=== PATIENT | male | born 1940 | race Caucasian/White ===

== ENCOUNTER 2024-06-29 13:43 | Inpatient (IN) | payer MEDICARE, MEDICAID, SELFPAY ==
[2024-06-29] VITALS (21 sets, daily range): BP systolic 106–140; BP diastolic 57–72; PULSE 76–98; RESP 13–23; TEMP 36.7–37.1; O2SAT 90–100; BMI 23.6
--- NOTE | 2024-06-29 14:13 | XRR_ITS ---
PROCEDURE INFORMATION: Exam: XR Chest Exam date and time: 06/29/2024 2:33 PM Age: 83 years old Clinical indication: Epigastric pain; Vomiting TECHNIQUE: Imaging protocol: Radiologic exam of the chest. Views: 1 view. COMPARISON: No relevant prior studies available. FINDINGS: Tubes, catheters and devices: A screw is seen overlying the right glenoid. No acute findings. Lungs: There is a left medial basilar/retrocardiac focal opacity which could represent a small area of infiltrate or atelectasis. Lung bedoya are otherwise clear. Pleural spaces: Unremarkable. No pleural effusion. No pneumothorax. Heart/Mediastinum: Unremarkable. No cardiomegaly. Bones/joints: Unremarkable. XR/XR chest 1V portable [id number] IMPRESSION: There is a left medial basilar/retrocardiac focal opacity which could represent a small area of infiltrate or atelectasis. Please correlate clinically.
--- NOTE | 2024-06-29 14:14 | PC.PHAR ---
patient is from [facility]
[2024-06-29 14:22] LABS: Basophils # 0.1 10^3/uL (0.0-0.1); Basophils % 0.9 %; Eosinophils # 0.1 10^3/uL (0.0-0.8); Eosinophils % 0.9 %; Lymphocytes # 0.9 10^3/uL (0.8-4.8); Lymphocytes % 11.8 %; Mean Corpuscular HGB Conc 28.6 g/dL (30-55); Mean Corpuscular Hemoglobin 20.1 pg (27-33); Mean Corpuscular Volume 70.1 fl (82-101); Mean Platelet Volume 9.6 fL (7.4-10.4); Monocytes # 1.1 10^3/uL (0.2-0.9); Monocytes % 13.9 %; Neutrophils % 71.7 %; Nucleated Red Blood Cells % 0 %; Platelet Count 373 10^3/cmm (157-399); Red Blood Count 3.14 10^6/uL (3.85-5.65); Red Cell Distribution Width 19.7 % (12.1-15.1); White Blood Count 7.94 10^3/uL (3.29-11.43)
[2024-06-29] MEDS: ondansetron 2 mg/ML SDV 2 mL 4 MG IVP (14:26)
[2024-06-29] MEDS: pantoprazole 40 mg SDV IVP ×2 (14:26→20:29)
[2024-06-29 14:33] LABS: INR 1.04 (0.8-1.2)
[2024-06-29 14:34] LABS: Partial Thromboplastin Time 31.8 SECONDS (23.9-36.7)
[2024-06-29 14:42] LABS: Alanine Aminotransferase 12 U/L (0-41); Albumin Level 3.8 g/dL (3.5-5.2); Alkaline Phosphatase 84 U/L (40-130); Anion Gap 15.4 (5-19); Aspartate Amino Transferase 15 U/L (0-40); Blood Urea Nitrogen 36 mg/dL (8-23); Calcium 8.6 mg/dL (8.5-10.5); Carbon Dioxide 20 mmol/L (22-29); Chloride 105 mmol/L (98-107); Creatinine Clr Calc Pharmacy 56.5646; Globulin 2.5 g/dL (1.3-4.6); Glucose 104 mg/dL (65-115); Osmolality Calculated 291 mOsm/kg (285-295); Potassium 4.4 mmol/L (3.5-5.1); Sodium 136 mmol/L (136-145); Total Bilirubin 0.2 mg/dL (0.15-1.2); Total Protein 6.3 g/dL (6.6-8.7)
--- NOTE | 2024-06-29 15:01 | W.ED.GIBLEED ---
HPI - GI Bleed General: Chief complaint: GI Bleed Stated complaint: gi bleed Time Seen by Provider: 06/29/24 13:48 Source: patient and EMS Mode of arrival: EMS Limitations: other (Dementia) History of Present Illness: Patient is from custodial states that he had dark-colored vomit last night and this morning per custodial. They felt like it was coffee-ground emesis. Possibly some diarrhea as well. 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 Denies any abdominal pain. No previous records available in chart. Related Data Home Medications ?Medication ?Instructions ?Recorded ?Confirmed acetaminophen 325 mg tablet 650 mg PO Q4H 06/29/24 06/29/24 alprazolam 0.25 mg tablet 0.25 mg PO QID 06/29/24 06/29/24 aluminum-mag hydroxide-simethicone 30 ml PO Q2H PRN Constipation 06/29/24 06/29/24 200 mg-200 mg-20 mg/5 mL oral susp bisacodyl 5 mg tablet 5 mg PO Q6H PRN Constipation 06/29/24 06/29/24 escitalopram oxalate 10 mg tablet 10 mg PO DAILY 06/29/24 06/29/24 famotidine 20 mg tablet 20 mg PO BID 06/29/24 06/29/24 finasteride 5 mg tablet 5 mg PO DAILY 06/29/24 06/29/24 folic acid 1 mg tablet 1 mg PO DAILY 06/29/24 06/29/24 magnesium hydroxide 400 mg/5 mL 30 ml PO DAILY PRN Constipation 06/29/24 06/29/24 oral suspension (Milk of Magnesia) ondansetron HCl 4 mg tablet 4 mg PO Q6H 06/29/24 06/29/24 oxycodone 5 mg tablet 5 mg PO QID 06/29/24 06/29/24 pantoprazole 40 mg tablet,delayed 40 mg PO DAILY 06/29/24 06/29/24 release permethrin 5 % topical cream 1 applic topical DAILY 06/29/24 06/29/24 polyethylene glycol 3350 17 17 g PO DAILY 06/29/24 06/29/24 gram/dose oral powder quetiapine 25 mg tablet 25 mg PO TID 06/29/24 06/29/24 tamsulosin 0.4 mg capsule 0.4 mg PO DAILY 06/29/24 06/29/24 tramadol 50 mg tablet 100 mg PO Q6H PRN Pain 06/29/24 06/29/24 trazodone 50 mg tablet 50 mg PO DAILY 06/29/24 06/29/24 vit C 50 mg-E 15 unit-zinc cit 4.5 1 tab PO DAILY 06/29/24 06/29/24 mg-lutein 2.5 mg-zeaxan chew tablet ([employer]) Review of Systems General: Reports: Other (Unable due to dementia) PFSH ED PFSH: Medical History Alzheimer's dementia Physical Exam Const: COMMON NORMALS: no acute distress, average body habitus, healthy appearing, alert and well nourished GENERAL APPEARANCE: well kempt and well developed ORIENTATION/CONSCIOUSNESS: Yes awake, Yes oriented to person, Yes oriented to place (Can pick out the type of place.) and Yes oriented to time (Unsure date month or year, unable to remember what he ate for breakfast) HENMT: COMMON NORMALS: normocephalic, atraumatic, external ears normal and moist oral mucous membranes HEAD & SCALP: normocephalic and atraumatic EXTERNAL EAR: Yes external ears normal Eye: COMMON NORMALS: Equal, round and reactive pupils present, EOMs intact bilaterally and conjunctivae normal CONJUNCTIVA: Yes conjunctivae normal PUPIL: Yes Equal, round and reactive pupils present Neck/C-Spine: COMMON NORMALS: full ROM, no lymphadenopathy and supple Chest: CHEST: Yes Symmetrical chest wall rise and No Surgical scars present (Chest) Resp: COMMON NORMALS: normal respiratory effort, No retractions, No use of accessory muscles and clear to auscultation bilaterally AUSCULTATION: clear to auscultation bilaterally Cardio: COMMON NORMALS: regular rate, regular rhythm, S1 normal heart sound present, S2 normal heart sound present, No gallops present (Cardio), No clicks present (Cardio), No murmurs present (Cardio) and No rub (Cardio) RATE: regular rate RHYTHM: regular rhythm HEART SOUNDS: S1 normal heart sound present, S2 normal heart sound present and no murmurs PERIPHERAL PULSES: other (Radial pulses 2+ and symmetric) GI: COMMON NORMALS: Soft to palpation and no masses INSPECTION: No abdominal distension PALPATION: Yes Soft to palpation, Yes Tenderness to palpation present (GI) (Very mild tenderness to the epigastrium), No Guarding due to palpation present (GI) and No Rebound tenderness present : COMMON NORMALS: Yes no CVA tenderness BLADDER/KIDNEY EXAM: Yes no CVA tenderness Back/Pelvis: COMMON NORMALS: no CVA tenderness Extremity: COMMON NORMALS: normal to inspection, full ROM, capillary refill normal and no clubbing, cyanosis or edema Neuro: SENSORIUM/ORIENTATION: Yes alert, Yes oriented to person, Yes oriented to place (Can pick out the type of place.) and Yes oriented to time (Unsure date month or year, unable to remember what he ate for breakfast) Psych: APPEARANCE: Yes well kempt Skin: COMMON NORMALS: no rashes or lesions noted, no wounds, turgor normal and no jaundice GENERAL SKIN EXAM: no rashes or lesions noted and turgor normal Course Reevaluation(s): Reevaluation #1: Spoke with Dr. Mclean and he reports he will have a consult plans to add patient onto the GI lab for tomorrow. N.p.o. after midnight. Time: 16:24 Vital Signs: Vital signs: Vital Signs Temperature 98.7 F 06/29/24 13:45 Pulse Rate 82 06/29/24 16:00 Respiratory Rate 18 06/29/24 16:00 Blood Pressure 120/69 06/29/24 16:00 Pulse Oximetry 95 06/29/24 16:00 Oxygen Delivery Me thod Room Air 06/29/24 13:45 MDM - GI Bleed Medical Decision Making 83-year-old male with dementia limiting history. Possible coffee-ground emesis and hemoglobin of 6.3. Suspect upper GI bleed. Patient's vitals are stable. Unsure what his baseline hemoglobin is as we do not have access to that. Will attempt to contact custodial and try to get baseline labs. Dr. Mclean of general surgery will see patient for the upper GI bleed and plan to do EGD in the morning. Dr. Pennington will be admitting. Medical Records I reviewed the patient's medical records. Lab Data I reviewed the patient's lab results. 06/29/24 14:10 06/29/24 14:10 Radiology Impressions Chest X-Ray 06/29/24 14:13 IMPRESSION: There is a left medial basilar/retrocardiac focal opacity which could represent a small area of infiltrate or atelectasis. Please correlate clinically. Laboratory Results WBC 7.94 10^3/uL (3.29-11.43) 06/29/24 14:10 RBC 3.14 10^6/uL (3.85-5.65) L 06/29/24 14:10 Hgb 6.30 g/dL (11.27-16.99) L* 06/29/24 14:10 Hct 22.0 % (37-53) L 06/29/24 14:10 MCV 70.1 fl (82-101) L 06/29/24 14:10 MCH 20.1 pg (27-33) L 06/29/24 14:10 MCHC 28.6 g/dL (30-55) L 06/29/24 14:10 RDW 19.7 % (12.1-15.1) H 06/29/24 14:10 Plt Count 373 10^3/cmm (157-399) 06/29/24 14:10 MPV 9.6 fL (7.4-10.4) 06/29/24 14:10 Neut % (Auto) 71.7 % 06/29/24 14:10 Lymph % (Auto) 11.8 % 06/29/24 14:10 Mcdowell % (Auto) 13.9 % 06/29/24 14:10 Eos % (Auto) 0.9 % 06/29/24 14:10 Baso % (Auto) 0.9 % 06/29/24 14:10 Neut # (Auto) 5.70 10^3/uL (1.8-7.7) 06/29/24 14:10 Lymph # (Auto) 0.9 10^3/uL (0.8-4.8) 06/29/24 14:10 Mcdowell # (Auto) 1.1 10^3/uL (0.2-0.9) H 06/29/24 14:10 Eos # (Auto) 0.1 10^3/uL (0.0-0.8) 06/29/24 14:10 Baso # (Auto) 0.1 10^3/uL (0.0-0.1) 06/29/24 14:10 Nucleated RBC % (auto) 0 % 06/29/24 14:10 Nucleated RBCs # 0.0 /100WBC 06/29/24 14:10 PT 14.30 SECONDS (12.1-14.9) 06/29/24 14:10 INR 1.04 (0.8-1.2) 06/29/24 14:10 APTT 31.8 SECONDS (23.9-36.7) 06/29/24 14:10 Sodium 136 mmol/L (136-145) 06/29/24 14:10 Potassium 4.4 mmol/L (3.5-5.1) 06/29/24 14:10 Chloride 105 mmol/L (98-107) 06/29/24 14:10 Carbon Dioxide 20 mmol/L (22-29) L 06/29/24 14:10 Anion Gap 15.4 (5-19) 06/29/24 14:10 BUN 36 mg/dL (8-23) H 06/29/24 14:10 Creatinine 1.0 mg/dL (0.7-1.2) 06/29/24 14:10 GFR Calculation Not Reportable 06/29/24 14:10 Glucose 104 mg/dL (65-115) 06/29/24 14:10 Calculated Osmolality 291 mOsm/kg (285-295) 06/29/24 14:10 Calcium 8.6 mg/dL (8.5-10.5) 06/29/24 14:10 Total Bilirubin 0.2 mg/dL (0.15-1.2) 06/29/24 14:10 AST 15 U/L (0-40) 06/29/24 14:10 ALT 12 U/L (0-41) 06/29/24 14:10 Alkaline Phosphatase 84 U/L (40-130) 06/29/24 14:10 Total Protein 6.3 g/dL (6.6-8.7) L 06/29/24 14:10 Albumin 3.8 g/dL (3.5-5.2) 06/29/24 14:10 Globulin 2.5 g/dL (1.3-4.6) 06/29/24 14:10 Blood Type O Positive 06/29/24 16:06 Rho(D) Type Rh positive 06/29/24 16:06 Antibody Screen Negative 06/29/24 16:06 Crossmatch See Detail 06/29/24 16:06 All radiology interpretation(s) finalized by discharge ED provider radiology interpretation(s): While there is a left lower lobe area of abnormality, patient has no cough, no fever no shortness of breath. Critical Care Time Critical Care Time: Critical Care Time: Yes Total Critical Care Time: 33 Attestation: This case had a high probability of a clinically significant, sudden, or life threatening deterioration of this patient's condition which required my full and direct attention, intervention and personal management. Discharge Plan Discharge Condition: Stable Prescriptions: No Action quetiapine 25 mg tablet 25 mg PO TID trazodone 50 mg tablet 50 mg PO DAILY ondansetron HCl 4 mg tablet 4 mg PO Q6H permethrin 5 % cream 1 applic TOPICAL DAILY alprazolam 0.25 mg tablet 0.25 mg PO QID famotidine 20 mg tablet 20 mg PO BID tamsulosin 0.4 mg capsule 0.4 mg PO DAILY pantoprazole 40 mg tablet,delayed release (DR/EC) 40 mg PO DAILY finasteride 5 mg tablet 5 mg PO DAILY oxycodone 5 mg tablet 5 mg PO QID escitalopram oxalate 10 mg tablet 10 mg PO DAILY acetaminophen 325 mg Tablet 650 mg PO Q4H tramadol 50 mg Tablet 100 mg PO Q6H PRN (Reason: Pain) magnesium hydroxide [Milk of Magnesia] 400 mg/5 mL Suspension 30 ml PO DAILY PRN (Reason: Constipation) folic acid 1 mg Tablet 1 mg PO DAILY alum-mag hydroxide-simeth 200-200-20 mg/5 mL Suspension 30 ml PO Q2H PRN (Reason: Constipation) Rx Instructions: administer between meals and at bedtime polyethylene glycol 3350 17 gram/dose Powder 17 g PO DAILY bisacodyl 5 mg Tablet 5 mg PO Q6H PRN (Reason: Constipation) [facility] 50 mg-15 unit- 4.5 mg-2.5 mg Tablet,Chewable 1 tab PO DAILY Print Language: Persian Coding Level of Care Code ED Obstetrics Teacher for Benita Salcedo
--- NOTE | 2024-06-29 17:12 | PM.HP ---
Providers/Chief Complaint Chief Complaint: gi bleed History of Present Illness Bert Kim is a 83 year old male with a past medical history significant for Alzheimer's dementia who presents from nursing facility with coffee-ground emesis x 1 day. Upon assessment, patient is awake and alert. He is a poor historian due to underlying dementia. His nephew is bedside and is DPOA. He reports the patient has advanced dementia and has been in the nursing facility here in [place] for the past 2 years. Prior to that he was in [place] and he is not aware of many the details regarding his past medical histories. States that he is generally pretty healthy with the exception of advanced dementia. Per collateral information, patient developed multiple episodes of coffee-ground emesis this morning. He had a episode of diarrhea as well. He complained of transient right upper quadrant discomfort upon presentation to emergency department. He currently denies any complaints. Denies fevers, chills, nausea or emesis. He has no known history of GI bleeding. Home medication list does not have any antiplatelets or anticoagulants on it. In the emergency department, he was found to be anemic with a hemoglobin of 6.3. He has an unknown hemoglobin baseline. BUN elevated at 36. Attempted to obtain a complete medical history. However, patient is unaware of his past medical, past surgical, family history and social histories due to advanced dementia. Review of Systems Narrative: A complete review of systems was obtained and is negative except as stated in HPI. Medications/Allergies Home Medications ?Medication ?Instructions ?Recorded ?Confirmed ?Last Taken ?Type acetaminophen 325 mg tablet 650 mg PO Q4H 06/29/24 06/29/24 Unknown History alprazolam 0.25 mg tablet 0.25 mg PO QID 06/29/24 06/29/24 Unknown History aluminum-mag hydroxide-simethicone 30 ml PO Q2H PRN Constipation 06/29/24 06/29/24 Unknown History 200 mg-200 mg-20 mg/5 mL oral susp bisacodyl 5 mg tablet 5 mg PO Q6H PRN Constipation 06/29/24 06/29/24 Unknown History escitalopram oxalate 10 mg tablet 10 mg PO DAILY 06/29/24 06/29/24 Unknown History famotidine 20 mg tablet 20 mg PO BID 06/29/24 06/29/24 Unknown History finasteride 5 mg tablet 5 mg PO DAILY 06/29/24 06/29/24 Unknown History folic acid 1 mg tablet 1 mg PO DAILY 06/29/24 06/29/24 Unknown History magnesium hydroxide 400 mg/5 mL 30 ml PO DAILY PRN Constipation 06/29/24 06/29/24 Unknown History oral suspension (Milk of Magnesia) ondansetron HCl 4 mg tablet 4 mg PO Q6H 06/29/24 06/29/24 Unknown History oxycodone 5 mg tablet 5 mg PO QID 06/29/24 06/29/24 Unknown History pantoprazole 40 mg tablet,delayed 40 mg PO DAILY 06/29/24 06/29/24 Unknown History release permethrin 5 % topical cream 1 applic topical DAILY 06/29/24 06/29/24 Unknown History polyethylene glycol 3350 17 17 g PO DAILY 06/29/24 06/29/24 Unknown History gram/dose oral powder quetiapine 25 mg tablet 25 mg PO TID 06/29/24 06/29/24 Unknown History tamsulosin 0.4 mg capsule 0.4 mg PO DAILY 06/29/24 06/29/24 Unknown History tramadol 50 mg tablet 100 mg PO Q6H PRN Pain 06/29/24 06/29/24 Unknown History trazodone 50 mg tablet 50 mg PO DAILY 06/29/24 06/29/24 Unknown History vit C 50 mg-E 15 unit-zinc cit 4.5 1 tab PO DAILY 06/29/24 06/29/24 Unknown History mg-lutein 2.5 mg-zeaxan chew tablet ([place]) PFSH Acute PFSH: Medical History Alzheimer's dementia Vitals/I&O/Wt Last Vital Signs Temp 98.7 F 06/29/24 13:45 Pulse 82 06/29/24 16:00 Resp 18 06/29/24 16:00 BP 120/69 06/29/24 16:00 Pulse Ox 95 06/29/24 16:00 O2 Del Method Room Air 06/29/24 13:45 Weight last 48 hrs Weight 72.575 kg Physical Exam Narrative: General: Patient is awake. Alert. Pleasant. Head: Normocephalic. Atraumatic. EOM intact. Pale mucous membranes. Neck: No JVD. Cardiovascular: RRR. No gallops. No murmurs. Lungs: Clear to auscultation, no use of accessory muscles, no crackles or wheezes. Skin: No jaundice. No rashes. Abdomen: Mild tenderness to palpation in the epigastric region. Bowel sounds present. Abdomen soft. Genito Urinary: Genital exam not performed since complaints not related. Rectal: Rectal exam not performed since no symptoms indicated blood loss. Extremities: No cyanosis or clubbing. Musculoskeletal: no swollen or erythematous joints. Neurological: Moves all 4 extremities. No myoclonus. Data 06/29/24 14:10 06/29/24 14:10 A&P Assessment and plan (1) Upper GI bleed: (2) Acute blood loss anemia: (3) Azotemia: (4) Metabolic acidosis: (5) Nausea & vomiting: Plan Acute upper GI bleed Acute blood loss anemia with unknown hemoglobin baseline Coffee-ground emesis - Start IV PPI twice daily - Start transfusion - Trend hemoglobin every 6 hours - Hemoglobin goal of at least 7 - N.p.o. for now pending general surgery recommendations - General Surgery's been consulted, appreciate recs Alzheimer's dementia - Symptoms are quite advanced - High risk for delirium - Mentation is of currently at baseline - Continue home medications Suspected BPH - Continue finasteride and Flomax DVT prophylaxis: SCD CODE STATUS: DNR-confirmed with DPOA PDMP PDMP Reviewed: Not Reviewed Attestations Medical Necessity Statement*: Patient presents with coffee-ground emesis with presentation concerning for acute upper GI bleed with associated acute blood loss anemia with expected hospitalization not to cross 2 midnights for transfusion, PPI, and general surgery evaluation. Coding Level of Care Code Acute Code for Chg Fwd Diagnoses Upper GI bleed K92.2 Acute blood loss anemia D62 Azotemia R79.89 Metabolic acidosis E87.20 Nausea & vomiting R11.2
[2024-06-29 17:30] LABS: Hematocrit 23.4 % (37-53)
[2024-06-29 17:49] LABS: Procalcitonin 0.09 ng/mL (0-0.5)
[2024-06-29] MEDS: oxyCODONE 5 mg IR Tab/Cap PO (20:28)
[2024-06-29] MEDS: ALPRAZolam 0.5 mg Tablet 0.25 MG PO (20:28)
[2024-06-29] MEDS: quetiapine 25 mg Tablet PO (20:28)
[2024-06-29] MEDS: famotidine 20 mg Tablet PO (20:28)
[2024-06-29] MEDS: dextrose 5%-sod chloride 0.45% 1,000 ML 75 ML IV (20:29)
[2024-06-29 23:19] LABS: Hematocrit 21.4 % (37-53)
[2024-06-29 23:56] LABS: Glucose Point of Care 115 mg/dL (70-110)
[2024-06-30] VITALS (25 sets, daily range): BP systolic 90–143; BP diastolic 49–83; PULSE 58–81; RESP 14–22; TEMP 36.4–37; O2SAT 92–100
[2024-06-30] MEDS: pantoprazole 40 mg SDV IVP ×2 (05:06→18:09)
--- NOTE | 2024-06-30 07:56 | ANES.PREANE2 ---
Pre-Anesthetic Assessment Height/Weight: Height 1.75 m Weight 74.616 kg Temp Pulse Resp BP Pulse Ox O2 Del Method 97.9 F 61 18 143/83 97 Room Air 06/30/24 07:34 06/30/24 07:34 06/30/24 07:34 06/30/24 07:34 06/30/24 07:34 06/30/24 07:34 Operation Date: 06/30/24 08:00 Proposed Procedures p EGD(Not Applicable) - Avni Mclean MD Last intake: Intake Last Liquid Date 06/29/24 Last Liquid Time 21:00 Last Solid Date 06/29/24 Last Solid Time 12:00 Social No alcohol and No tobacco Exam alert, oriented x 3, clear to auscultation bilaterally (diminished basilar BS ) and regular rate & rhythm Airway Submandibular: within normal limits Cervical ROM: within normal limits Mallampati: Class II Comments: Comments: advanced dental disease throughout GI Acute UGI bleed with anemia Neuropsych Dementia (Alzheimers ) Anesthetic Plan ASA status: 3E Anesthesia: MAC Other: Phone consent obtained from DPOA (TERESA Odneal, Nephew) Medications/Allergies Home Medications ?Medication ?Instructions ?Recorded ?Confirmed ?Last Taken ?Type acetaminophen 325 mg tablet 650 mg PO Q4H 06/29/24 06/29/24 Unknown History alprazolam 0.25 mg tablet 0.25 mg PO QID 06/29/24 06/29/24 Unknown History aluminum-mag hydroxide-simethicone 30 ml PO Q2H PRN Constipation 06/29/24 06/29/24 Unknown History 200 mg-200 mg-20 mg/5 mL oral susp bisacodyl 5 mg tablet 5 mg PO Q6H PRN Constipation 06/29/24 06/29/24 Unknown History escitalopram oxalate 10 mg tablet 10 mg PO DAILY 06/29/24 06/29/24 Unknown History famotidine 20 mg tablet 20 mg PO BID 06/29/24 06/29/24 Unknown History finasteride 5 mg tablet 5 mg PO DAILY 06/29/24 06/29/24 Unknown History folic acid 1 mg tablet 1 mg PO DAILY 06/29/24 06/29/24 Unknown History magnesium hydroxide 400 mg/5 mL 30 ml PO DAILY PRN Constipation 06/29/24 06/29/24 Unknown History oral suspension (Milk of Magnesia) ondansetron HCl 4 mg tablet 4 mg PO Q6H 06/29/24 06/29/24 Unknown History oxycodone 5 mg tablet 5 mg PO QID 06/29/24 06/29/24 Unknown History pantoprazole 40 mg tablet,delayed 40 mg PO DAILY 06/29/24 06/29/24 Unknown History release permethrin 5 % topical cream 1 applic topical DAILY 06/29/24 06/29/24 Unknown History polyethylene glycol 3350 17 17 g PO DAILY 06/29/24 06/29/24 Unknown History gram/dose oral powder quetiapine 25 mg tablet 25 mg PO TID 06/29/24 06/29/24 Unknown History tamsulosin 0.4 mg capsule 0.4 mg PO DAILY 06/29/24 06/29/24 Unknown History tramadol 50 mg tablet 100 mg PO Q6H PRN Pain 06/29/24 06/29/24 Unknown History trazodone 50 mg tablet 50 mg PO DAILY 06/29/24 06/29/24 Unknown History vit C 50 mg-E 15 unit-zinc cit 4.5 1 tab PO DAILY 06/29/24 06/29/24 Unknown History mg-lutein 2.5 mg-zeaxan chew tablet ([employer] Allergies Allergy/AdvReac Type Severity Reaction Status Date / Time prednisone Allergy Unknown Verified 06/29/24 23:31 Current Medications Generic Name Dose Route Start Last Admin Trade Name Freq PRN Reason Stop Dose Admin Alprazolam 0.25 mg 06/29/24 21:00 06/29/24 20:28 Alprazolam 0.5 Mg Tablet PO 0.25 mg QID ADAN Administration Famotidine 20 mg 06/29/24 18:00 06/29/24 20:28 Famotidine 20 Mg Tablet PO 20 mg BID ADAN Administration Dextrose/Sodium Chloride 1,000 mls @ 75 mls/hr 06/29/24 17:30 06/30/24 01:17 Dextrose 5%-Sod Chloride 0.45% IV 0 mls/hr .[id number] ADAN Infusion Oxycodone HCl 5 mg 06/29/24 21:00 06/29/24 20:28 Oxycodone 5 Mg Ir Tab/Cap PO 5 mg QID ADAN Administration Pantoprazole Sodium 40 mg 06/29/24 17:30 06/30/24 05:06 Pantoprazole 40 Mg Sdv IVP 40 mg Q12H ADAN Administration Quetiapine Fumarate 25 mg 06/29/24 21:00 06/29/24 20:28 Quetiapine 25 Mg Tablet PO 25 mg TID ADAN Administration PFSH Anesthesia Medical History Alzheimer's dementia Data Anesthesia 06/29/24 23:12 06/29/24 14:10 Short CBC 06/29/24 06/29/24 06/29/24 Range/Units 14:10 16:06 23:12 WBC 7.94 (3.29-11.43) 10^3/uL Hgb 6.30 L* 6.10 L* 6.20 L* (11.27-16.99) g/dL Hct 22.0 L 23.4 L 21.4 L (37-53) % MCV 70.1 L (82-101) fl Plt Count 373 (157-399) 10^3/cmm Neut % (Auto) 71.7 % Neut # (Auto) 5.70 (1.8-7.7) 10^3/uL BMP 06/29/24 14:10 Sodium 136 Potassium 4.4 Chloride 105 Carbon Dioxide 20 L BUN 36 H Creatinine 1.0 Glucose 104 Calcium 8.6 Liver Function 06/29/24 Range/Units 14:10 Total Bilirubin 0.2 (0.15-1.2) mg/dL AST 15 (0-40) U/L ALT 12 (0-41) U/L Alkaline Phosphatase 84 (40-130) U/L Albumin 3.8 (3.5-5.2) g/dL Blood Bank 06/29/24 16:06 Blood Type O Positive Rho(D) Type Rh positive Antibody Screen Negative Coags 06/29/24 14:10 PT 14.30 INR 1.04 APTT 31.8 Cardiac Studies: No Data to Display
--- NOTE | 2024-06-30 07:57 | PM.CONSULT ---
Providers/Reason For Consult Consulting Physician/Specialty*: dr vasquez general surgery Reason for Consult*: GIB Attending Physician: Dell Pennington MD History of Present Illness History of Present Illness Bert Kim is a 83 year old male who presents with melanotic stools and anemia. On famotidine. No recent scopes. No hematochezia. Medications/Allergies Home Medications ?Medication ?Instructions ?Recorded ?Confirmed ?Last Taken ?Type acetaminophen 325 mg tablet 650 mg PO Q4H 06/29/24 06/29/24 Unknown History alprazolam 0.25 mg tablet 0.25 mg PO QID 06/29/24 06/29/24 Unknown History aluminum-mag hydroxide-simethicone 30 ml PO Q2H PRN Constipation 06/29/24 06/29/24 Unknown History 200 mg-200 mg-20 mg/5 mL oral susp bisacodyl 5 mg tablet 5 mg PO Q6H PRN Constipation 06/29/24 06/29/24 Unknown History escitalopram oxalate 10 mg tablet 10 mg PO DAILY 06/29/24 06/29/24 Unknown History famotidine 20 mg tablet 20 mg PO BID 06/29/24 06/29/24 Unknown History finasteride 5 mg tablet 5 mg PO DAILY 06/29/24 06/29/24 Unknown History folic acid 1 mg tablet 1 mg PO DAILY 06/29/24 06/29/24 Unknown History magnesium hydroxide 400 mg/5 mL 30 ml PO DAILY PRN Constipation 06/29/24 06/29/24 Unknown History oral suspension (Milk of Magnesia) ondansetron HCl 4 mg tablet 4 mg PO Q6H 06/29/24 06/29/24 Unknown History oxycodone 5 mg tablet 5 mg PO QID 06/29/24 06/29/24 Unknown History pantoprazole 40 mg tablet,delayed 40 mg PO DAILY 06/29/24 06/29/24 Unknown History release permethrin 5 % topical cream 1 applic topical DAILY 06/29/24 06/29/24 Unknown History polyethylene glycol 3350 17 17 g PO DAILY 06/29/24 06/29/24 Unknown History gram/dose oral powder quetiapine 25 mg tablet 25 mg PO TID 06/29/24 06/29/24 Unknown History tamsulosin 0.4 mg capsule 0.4 mg PO DAILY 06/29/24 06/29/24 Unknown History tramadol 50 mg tablet 100 mg PO Q6H PRN Pain 06/29/24 06/29/24 Unknown History trazodone 50 mg tablet 50 mg PO DAILY 06/29/24 06/29/24 Unknown History vit C 50 mg-E 15 unit-zinc cit 4.5 1 tab PO DAILY 06/29/24 06/29/24 Unknown History mg-lutein 2.5 mg-zeaxan chew tablet ([employer]) Allergies Allergy/AdvReac Type Severity Reaction Status Date / Time prednisone Allergy Unknown Verified 06/29/24 23:31 Current Medications Generic Name Dose Route Start Last Admin Trade Name Freq PRN Reason Stop Dose Admin Alprazolam 0.25 mg 06/29/24 21:00 06/29/24 20:28 Alprazolam 0.5 Mg Tablet PO 0.25 mg QID ADAN Administration Famotidine 20 mg 06/29/24 18:00 06/29/24 20:28 Famotidine 20 Mg Tablet PO 20 mg BID ADAN Administration Dextrose/Sodium Chloride 1,000 mls @ 75 mls/hr 06/29/24 17:30 06/30/24 01:17 Dextrose 5%-Sod Chloride 0.45% IV 0 mls/hr .[id number] ADAN Infusion Oxycodone HCl 5 mg 06/29/24 21:00 06/29/24 20:28 Oxycodone 5 Mg Ir Tab/Cap PO 5 mg QID ADAN Administration Pantoprazole Sodium 40 mg 06/29/24 17:30 06/30/24 05:06 Pantoprazole 40 Mg Sdv IVP 40 mg Q12H ADAN Administration Quetiapine Fumarate 25 mg 06/29/24 21:00 06/29/24 20:28 Quetiapine 25 Mg Tablet PO 25 mg TID ADAN Administration PFSH Acute PFSH: Medical History Alzheimer's dementia Vitals/I&O/Wt Last Vital Signs Temp 97.9 F 06/30/24 07:34 Pulse 61 06/30/24 07:34 Resp 18 06/30/24 07:34 BP 143/83 06/30/24 07:34 Pulse Ox 97 06/30/24 07:34 O2 Del Method Room Air 06/30/24 07:34 06/29/24 06/30/24 06/30/24 22:59 06:59 14:59 Intake Total 0 / 0 710 / 710 Output Total 300 / 300 Balance 0 / 0 410 / 410 Weight last 48 hrs Weight 164 lb 8 oz Weight 160 lb Physical Exam Narrative: RRR unlabored breathing ra abdomen soft, nt, nd Data 06/29/24 23:12 06/29/24 14:10 A&P Assessment and plan (1) Upper GI bleed: Plan 83yo male with melena and anemia. Discussed risks and benefits and he agrees to proceed with EGD. PDMP PDMP Reviewed: Not Reviewed Coding Level of Care Code 05015 Diagnoses Upper GI bleed K92.2
--- NOTE | 2024-06-30 08:10 | PC.NURSE ---
Epinephrine pulled from anesthesia cart and adminstered to patient at 0810 - see physician note.
--- NOTE | 2024-06-30 08:28 | ANE.PACU2 ---
Inpatient post-anesthesia follow up: Vital signs: Temperature 97.7 F Pulse Rate 76 Respiratory Rate 22 Blood Pressure 94/49 Pulse Oximetry 99 Oxygen Delivery Me thod Nasal Cannula Oxygen Flow Rate 6 Fraction of Inspir ed Oxygen Hydration adequate: Yes Nausea and vomiting: No Pain level: baseline Mental status: Baseline (appropriate for immediate post sedation )
--- NOTE | 2024-06-30 08:30 | PC.NURSE ---
Patient transported to room 262 via guerny. Transferred to bed with minimal assist. VS - 97.9. HR 73, RR 18, BP 108/67, 02 sat 98% on 2L. CHATA Haines notified patient is in room.
--- NOTE | 2024-06-30 09:12 | P.PN_ITS ---
Subjective 2 Subjective: Patient seen post EGD. He is resting comfortably in bed. Denies any new complaints although he is a poor historian due to advanced dementia. Prelim reports from general surgery is distal esophageal lesions with bleeding concerning for possible malignancy. Biopsies were taken and he will need follow up with surgery clinic. Medications: Reviewed: Yes Vitals/I&O/Wt Last Vital Signs Temp 97.9 F 06/30/24 09:00 Pulse 69 06/30/24 09:00 Resp 15 06/30/24 09:00 BP 108/67 06/30/24 09:00 Pulse Ox 97 06/30/24 09:00 O2 Del Method Nasal Cannula 06/30/24 09:00 O2 Flow Rate 2 06/30/24 08:30 06/29/24 06/30/24 06/30/24 22:59 06:59 14:59 Intake Total 0 / 0 710 / 710 0 / 0 Output Total 300 / 300 Balance 0 / 0 410 / 410 0 / 0 Weight last 48 hrs Weight 74.616 kg Weight 72.575 kg Physical Exam 2 Narrative: General: Patient is sleeping, arouses to voice. Head: Normocephalic. Pale mucous membranes. Neck: No JVD. Cardiovascular: RRR. No gallops. No murmurs. Lungs: Clear to auscultation, no use of accessory muscles, no crackles or wheezes. Skin: No jaundice. No rashes. Abdomen: Abdomen is soft. Bowel sounds are present. Extremities: No cyanosis or clubbing. Musculoskeletal: no swollen or erythematous joints. Neurological: Moves all 4 extremities. No myoclonus. Data 06/29/24 23:12 06/29/24 14:10 A&P Assessment and plan (1) Upper GI bleed: (2) Acute blood loss anemia: (3) Azotemia: (4) Metabolic acidosis: (5) Nausea & vomiting: Plan Acute upper GI bleed Acute blood loss anemia with unknown hemoglobin baseline Coffee-ground emesis - Prelim report is distal esophageal lesions; suspicious for malignancy - Continue IV PPI twice daily - Trend hemoglobin every 6 hours - Hemoglobin goal of at least 7 - Start clear liquid diet - Follow up EGD report Alzheimer's dementia - Mentation at baseline - High risk for delirium - Continue home medications Suspected BPH - Continue finasteride and Flomax DVT prophylaxis: SCD CODE STATUS: DNR-confirmed with DPOA PDMP PDMP Reviewed: Not Reviewed Attestations 2 Medical Necessity Statement*: Pt requires ongoing hospitalization for treatment of ongoing esophageal bleeding, IV PPI, serial labs, and probable need for repeat transfusions. Coding Level of Care Code Acute Code for Chg Fwd Diagnoses Upper GI bleed K92.2 Acute blood loss anemia D62 Azotemia R79.89 Metabolic acidosis E87.20 Nausea & vomiting R11.2
[2024-06-30] MEDS: tamsulosin 0.4 mg Capsule PO (09:26)
[2024-06-30] MEDS: ALPRAZolam 0.5 mg Tablet 0.25 MG PO ×4 (09:26→20:36)
[2024-06-30] MEDS: famotidine 20 mg Tablet PO ×2 (09:26→18:08)
[2024-06-30] MEDS: quetiapine 25 mg Tablet PO ×3 (09:26→20:36)
[2024-06-30] MEDS: finasteride 5 mg Tablet PO (09:26)
[2024-06-30] MEDS: oxyCODONE 5 mg IR Tab/Cap PO ×4 (09:26→20:36)
[2024-06-30] MEDS: escitalopram 10 mg Tablet PO (09:26)
[2024-06-30 10:02] LABS: Basophils # 0.1 10^3/uL (0.0-0.1); Basophils % 2.1 %; Eosinophils # 0.3 10^3/uL (0.0-0.8); Eosinophils % 4.4 %; Hematocrit 31.9 % (37-53); Lymphocytes # 1.1 10^3/uL (0.8-4.8); Mean Corpuscular HGB Conc 30.4 g/dL (30-55); Mean Corpuscular Hemoglobin 22.9 pg (27-33); Mean Corpuscular Volume 75.4 fl (82-101); Mean Platelet Volume 9.6 fL (7.4-10.4); Monocytes # 1.1 10^3/uL (0.2-0.9); Monocytes % 17.8 %; Neutrophils # 3.52 10^3/uL (1.8-7.7); Neutrophils % 57.1 %; Nucleated Red Blood Cells % 0 %; Platelet Count 297 10^3/cmm (157-399); Red Blood Count 4.23 10^6/uL (3.85-5.65); White Blood Count 6.17 10^3/uL (3.29-11.43)
[2024-06-30 10:19] LABS: Anion Gap 12.4 (5-19); Blood Urea Nitrogen 24 mg/dL (8-23); Carbon Dioxide 21 mmol/L (22-29); Chloride 107 mmol/L (98-107); Creatinine Clr Calc Pharmacy 52.0099; Glucose 98 mg/dL (65-115); Magnesium 2.2 mg/dL (1.7-2.3); Osmolality Calculated 286 mOsm/kg (285-295); Potassium 4.4 mmol/L (3.5-5.1); Sodium 136 mmol/L (136-145)
[2024-06-30 15:28] LABS: Hematocrit 31.7 % (37-53)
[2024-06-30] MEDS: dextrose 5%-sod chloride 0.45% 1,000 ML 75 ML IV (18:17)
[2024-07-01 04:00] VITALS: BP 101/58; PULSE 65; RESP 17; TEMP 36.4; O2SAT 93
[2024-07-01 04:42] LABS: Basophils # 0.1 10^3/uL (0.0-0.1); Basophils % 2.2 %; Eosinophils # 0.8 10^3/uL (0.0-0.8); Eosinophils % 13.6 %; Hematocrit 29.3 % (37-53); Lymphocytes # 1.4 10^3/uL (0.8-4.8); Lymphocytes % 24.4 %; Mean Corpuscular Hemoglobin 22.7 pg (27-33); Mean Corpuscular Volume 75.7 fl (82-101); Mean Platelet Volume 9.4 fL (7.4-10.4); Monocytes # 1.2 10^3/uL (0.2-0.9); Monocytes % 20.3 %; Neutrophils # 2.29 10^3/uL (1.8-7.7); Neutrophils % 38.8 %; Nucleated Red Blood Cells % 0 %; Platelet Count 267 10^3/cmm (157-399); Red Blood Count 3.87 10^6/uL (3.85-5.65)
[2024-07-01 05:04] LABS: Alanine Aminotransferase 11 U/L (0-41); Albumin Level 3.4 g/dL (3.5-5.2); Alkaline Phosphatase 66 U/L (40-130); Anion Gap 11.1 (5-19); Aspartate Amino Transferase 16 U/L (0-40); Blood Urea Nitrogen 16 mg/dL (8-23); Carbon Dioxide 23 mmol/L (22-29); Chloride 107 mmol/L (98-107); Creatinine Clr Calc Pharmacy 52.5062; Globulin 2.1 g/dL (1.3-4.6); Glucose 88 mg/dL (65-115); Magnesium 2.1 mg/dL (1.7-2.3); Osmolality Calculated 285 mOsm/kg (285-295); Phosphorus 2.9 mg/dL (2.5-4.5); Potassium 4.1 mmol/L (3.5-5.1); Sodium 137 mmol/L (136-145); Total Bilirubin 0.5 mg/dL (0.15-1.2); Total Protein 5.5 g/dL (6.6-8.7)
[2024-07-01] MEDS: pantoprazole 40 mg SDV IVP (05:12)
[2024-07-01] MEDS: dextrose 5%-sod chloride 0.45% 1,000 ML 75 ML IV (06:26)
[2024-07-01 07:39] VITALS: BP 104/65; PULSE 75; RESP 17; TEMP 36.7; O2SAT 98
[2024-07-01] MEDS: tamsulosin 0.4 mg Capsule PO (09:38)
[2024-07-01] MEDS: quetiapine 25 mg Tablet PO (09:38)
[2024-07-01] MEDS: ALPRAZolam 0.5 mg Tablet 0.25 MG PO ×2 (09:38→12:18)
[2024-07-01] MEDS: finasteride 5 mg Tablet PO (09:38)
[2024-07-01] MEDS: famotidine 20 mg Tablet PO (09:38)
[2024-07-01] MEDS: oxyCODONE 5 mg IR Tab/Cap PO ×2 (09:38→12:18)
[2024-07-01] MEDS: escitalopram 10 mg Tablet PO (09:38)
--- NOTE | 2024-07-01 10:26 | P.DS_ITS ---
Discharge Providers Date of Admission: 06/30/24 09:38 Date of Discharge: July 01, 2024 Attending Provider at Admission: Dell Pennington MD Attending Provider at Discharge: Dell Pennington MD Consults: General Surgery Diagnoses at Discharge Discharge Diagnosis (1) Upper GI bleed: Status: Acute (2) Acute blood loss anemia: Status: Acute (3) Azotemia: Status: Acute (4) Metabolic acidosis: Status: Acute (5) Nausea & vomiting: Status: Acute Reason for Visit Reason for Visit: gi bleed Brief History: History of Present Illness Bert Kim is a 83 year old male with a past medical history significant for Alzheimer's dementia who presents from nursing facility with coffee-ground emesis x 1 day. Upon assessment, patient is awake and alert. He is a poor historian due to underlying dementia. His nephew is bedside and is DPOA. He reports the patient has advanced dementia and has been in the nursing facility here in [place] for the past 2 years. Prior to that he was in [place] and he is not aware of many the details regarding his past medical histories. States that he is generally pretty healthy with the exception of advanced dementia. Per collateral information, patient developed multiple episodes of coffee-ground emesis this morning. He had a episode of diarrhea as well. He complained of transient right upper quadrant discomfort upon presentation to emergency department. He currently denies any complaints. Denies fevers, chills, nausea or emesis. He has no known history of GI bleeding. Home medication list does not have any antiplatelets or anticoagulants on it. In the emergency department, he was found to be anemic with a hemoglobin of 6.3. He has an unknown hemoglobin baseline. BUN elevated at 36. Attempted to obtain a complete medical history. However, patient is unaware of his past medical, past surgical, family history and social histories due to advanced dementia. Hospital Course Hospital Course Bert Kim is a 83 year old male with a past medical history significant for Alzheimer's dementia who presents from nursing facility with coffee-ground emesis, found to have acute upper GI bleed with acute blood loss anemia secondary to distal esophageal ulcer. General surgery consulted and underwent EGD revealing ulcer. Biopsies were taken with pathology pending at time of discharge. There is underlying concern for possible esophageal malignancy. He will follow-up in general surgery clinic once pathology results. He was treated with PPI treatment. Hemoglobin stabilized post transfusions. He tolerated diet prior to discharge. He is at least a moderate risk for rebleeding due to an esophageal ulcer. If significant rebleeding does occur, would recommend consideration of embolization. Patient discharged back to facility in stable condition. His DPOA was updated on day of discharge. Physical Exam Narrative: General: Patient is awake and alert. Pleasant. Not oriented to situation. Head: Normocephalic. Neck: No JVD. Cardiovascular: RRR. No gallops. No murmurs. Lungs: Clear to auscultation, no use of accessory muscles, no crackles or wheezes. Skin: No jaundice. No rashes. Abdomen: Abdomen is soft. Bowel sounds are present. Extremities: No cyanosis or clubbing. Musculoskeletal: no swollen or erythematous joints. Neurological: Moves all 4 extremities. No myoclonus. Discharge Data Studies Completed and Pending Completed Studies During Hospitalization Category Date Time Status XR chest 1V portable [id number] Stat Exams 06/29/24 14:13 Completed Pending at discharge Category Date Time Status Pathology: Surgical [PTH] Routine Pth 06/30/24 08:15 Received Radiology Impressions Chest X-Ray 06/29/24 14:13 IMPRESSION: There is a left medial basilar/retrocardiac focal opacity which could represent a small area of infiltrate or atelectasis. Please correlate clinically. Laboratory Results WBC 5.90 10^3/uL (3.29-11.43) 07/01/24 04:06 RBC 3.87 10^6/uL (3.85-5.65) 07/01/24 04:06 Hgb 8.80 g/dL (11.27-16.99) L 07/01/24 04:06 Hct 29.3 % (37-53) L 07/01/24 04:06 MCV 75.7 fl (82-101) L 07/01/24 04:06 MCH 22.7 pg (27-33) L 07/01/24 04:06 MCHC 30.0 g/dL (30-55) 07/01/24 04:06 RDW 20.0 % (12.1-15.1) H 07/01/24 04:06 Plt Count 267 10^3/cmm (157-399) 07/01/24 04:06 MPV 9.4 fL (7.4-10.4) 07/01/24 04:06 Neut % (Auto) 38.8 % 07/01/24 04:06 Lymph % (Auto) 24.4 % 07/01/24 04:06 [place] % (Auto) 20.3 % 07/01/24 04:06 Eos % (Auto) 13.6 % 07/01/24 04:06 Baso % (Auto) 2.2 % 07/01/24 04:06 Neut # (Auto) 2.29 10^3/uL (1.8-7.7) 07/01/24 04:06 Lymph # (Auto) 1.4 10^3/uL (0.8-4.8) 07/01/24 04:06 [place] # (Auto) 1.2 10^3/uL (0.2-0.9) H 07/01/24 04:06 Eos # (Auto) 0.8 10^3/uL (0.0-0.8) 07/01/24 04:06 Baso # (Auto) 0.1 10^3/uL (0.0-0.1) 07/01/24 04:06 Nucleated RBC % (auto) 0 % 07/01/24 04:06 Nucleated RBCs # 0.0 /100WBC 07/01/24 04:06 PT 14.30 SECONDS (12.1-14.9) 06/29/24 14:10 INR 1.04 (0.8-1.2) 06/29/24 14:10 APTT 31.8 SECONDS (23.9-36.7) 06/29/24 14:10 Sodium 137 mmol/L (136-145) 07/01/24 04:06 Potassium 4.1 mmol/L (3.5-5.1) 07/01/24 04:06 Chloride 107 mmol/L (98-107) 07/01/24 04:06 Carbon Dioxide 23 mmol/L (22-29) 07/01/24 04:06 Anion Gap 11.1 (5-19) 07/01/24 04:06 BUN 16 mg/dL (8-23) 07/01/24 04:06 Creatinine 1.1 mg/dL (0.7-1.2) 07/01/24 04:06 GFR Calculation Not Reportable 07/01/24 04:06 Glucose 88 mg/dL (65-115) 07/01/24 04:06 POC Glucose 115 mg/dL (70-110) H 06/29/24 23:53 Calculated Osmolality 285 mOsm/kg (285-295) 07/01/24 04:06 Calcium 8.0 mg/dL (8.5-10.5) L 07/01/24 04:06 Phosphorus 2.9 mg/dL (2.5-4.5) 07/01/24 04:06 Magnesium 2.1 mg/dL (1.7-2.3) 07/01/24 04:06 Total Bilirubin 0.5 mg/dL (0.15-1.2) 07/01/24 04:06 AST 16 U/L (0-40) 07/01/24 04:06 ALT 11 U/L (0-41) 07/01/24 04:06 Alkaline Phosphatase 66 U/L (40-130) 07/01/24 04:06 Total Protein 5.5 g/dL (6.6-8.7) L 07/01/24 04:06 Albumin 3.4 g/dL (3.5-5.2) L 07/01/24 04:06 Globulin 2.1 g/dL (1.3-4.6) 07/01/24 04:06 Procalcitonin 0.09 ng/mL (0-0.5) 06/29/24 14:10 Blood Type O Positive 06/29/24 16:06 Rho(D) Type Rh positive 06/29/24 16:06 Antibody Screen Negative 06/29/24 16:06 Crossmatch See Detail 06/29/24 16:06 Vitals Last Vital Signs Temp 98.0 F 07/01/24 07:39 Pulse 75 07/01/24 07:39 Resp 17 07/01/24 07:39 BP 104/65 07/01/24 07:39 Pulse Ox 98 07/01/24 07:39 O2 Del Method Room Air 07/01/24 07:39 O2 Flow Rate 2 06/30/24 08:30 Discharge Plan Discharge Patient Disposition: Xfer SNF Condition: Stable Prescriptions: New ferrous sulfate 325 mg (65 mg iron) tablet,delayed release (DR/EC) 325 mg PO EVERY OTHER DAY Qty: 14 0RF sucralfate [Carafate] 100 mg/mL suspension 1 g PO TID 28 Days Qty: 840 0RF Continued quetiapine 25 mg tablet 25 mg PO TID trazodone 50 mg tablet 50 mg PO DAILY ondansetron HCl 4 mg tablet 4 mg PO Q6H permethrin 5 % cream 1 applic TOPICAL DAILY alprazolam 0.25 mg tablet 0.25 mg PO QID famotidine 20 mg tablet 20 mg PO BID tamsulosin 0.4 mg capsule 0.4 mg PO DAILY finasteride 5 mg tablet 5 mg PO DAILY oxycodone 5 mg tablet 5 mg PO QID escitalopram oxalate 10 mg tablet 10 mg PO DAILY acetaminophen 325 mg Tablet 650 mg PO Q4H tramadol 50 mg Tablet 100 mg PO Q6H PRN (Reason: Pain) magnesium hydroxide [Milk of Magnesia] 400 mg/5 mL Suspension 30 ml PO DAILY PRN (Reason: Constipation) folic acid 1 mg Tablet 1 mg PO DAILY alum-mag hydroxide-simeth 200-200-20 mg/5 mL Suspension 30 ml PO Q2H PRN (Reason: Constipation) Rx Instructions: administer between meals and at bedtime polyethylene glycol 3350 17 gram/dose Powder 17 g PO DAILY bisacodyl 5 mg Tablet 5 mg PO Q6H PRN (Reason: Constipation) Ocuvite Eye Health 50 mg-15 unit- 4.5 mg-2.5 mg Tablet,Chewable 1 tab PO DAILY Changed pantoprazole 40 mg tablet,delayed release (DR/EC) 40 mg PO BID 30 Days Qty: 60 0RF Discharge Orders: Discharge Order (Routine); Ordered 07/01/24 Ordered By: Dell Pennington Referrals: [facility] [Outside] Discharge Diet: GI Soft Discharge Activity: Resume usual activity and Increase activity as tolerated Patient Instructions: GI Post Discharge Instructions w/ Anesthesia, Opioid Safety Activity Restrictions/Additional Instructions: 1. Follow-up with general surgery clinic, Dr. Mclean, to review pathology results 2. Follow soft diet to allow esophageal ulcer wound healing. 3. Take medications as prescribed. 4. Follow-up with provider at facility within 7 days. 5. Constipation be a side effect from iron supplement, monitor symptomatology. Discharge Attestations Time Spent in Discharge Care*: greater than 30 min Quality Metrics Clinical Quality Measures [ No reported AMI, CVA or VTE this stay] Coding Level of Care Code Acute Code for Chg Fwd Diagnoses Upper GI bleed K92.2 Acute blood loss anemia D62 Azotemia R79.89 Metabolic acidosis E87.20 Nausea & vomiting R11.2
--- NOTE | 2024-07-01 11:07 | PC.CHAP ---
Pastoral Care Encounter/Spiritual Assessment Type of Contact [] Declined manager field services visit [] Patient/Family/Request visit [] Outpatient visit [] Follow-up visit [] Physician referral [] Code/Alert [x] Routine visit [] Staff referral [] Actively dying [x] Patient sleeping [] Family support [] [] Out of room [] Palliative care [] [] Receiving care in room [] Pre-surgical visit [] Trauma [] Long length of stay [] ICU visit [] Other: Relational/Emotional Strength [] Patient feels connected with others/family/visitors/staff [] Distress [] Loneliness/isolation [] Abandonment Spirituality of Patient [] Person of Rachelle [] Attends Roman Catholic of their Rachelle [] Believes in Prayer [] Reads Bible or Episcopalian materials [] There are Spiritual issues to be addressed Thread Grinder Interventions [x] Prayer [] Active listening [] Non-anxious presence [] Spiritual/emotional support [] Crisis/trauma care [] Spiritual counseling [] Bereavement support [] Provided bereavement packet [] Provided Bible/devotional materials [] Provided toy/stuffed animal, coloring book to patient or family member [] Provided Communion [] Anointing/[place] [] Salvation [] Completed spiritual assessment [] Other: Impact on Illness or Injury [] Angry [] Fearful [] Anxious [] Often cries [] Exhaustion [] Unable to work [] Unable to attend christian [] Unable to walk/stand [] Unable to read [] Unable to drive [] Unable to eat/drink [] Unable to sleep [] Unable to be with family [] Patient intubated [] Other: Summary Time spent with patient
[2024-07-01 11:21] VITALS: BP 125/64; PULSE 61; RESP 16; TEMP 36.4; O2SAT 94
[2024-07-01 14:08] VITALS: BP 125/64; PULSE 61; RESP 16; O2SAT 94
== END 2024-07-01 14:00 | disposition intermediate care facility (04) | DRG 381 ==
LOC: ER 17:38 → MEDSURG 17:54
PROVIDERS: Student in an Organized Health Care Education/Training Program; Admitting Provider Internal Medicine; Emergency Provider Emergency Medicine; Visit Provider Internal Medicine
PROC: 0DJ08ZZ Inspection of Upper Intestinal Tract, Via Natural or Artificial Opening Endoscopic (ICD-10-PCS; principal; 2024-06-30 08:00)
DX: K22.11 Ulcer of esophagus with bleeding (principal); D62 Acute posthemorrhagic anemia; E87.20 Acidosis, unspecified; R79.89 Other specified abnormal findings of blood chemistry; G30.9 Alzheimer's disease, unspecified; F02.80 Dementia in other diseases classified elsewhere, unspecified severity, without behavioral disturbance, psychotic disturbance, mood disturbance, and anxiety; N40.0 Benign prostatic hyperplasia without lower urinary tract symptoms
CPT/HCPCS: 36415; 36416; 36430; 43255; 71045; 80048; 80053; 82962; 83735; 84100; 84145; 85014; 85018; 85025; 85610; 85730; 86850; 86900; 86920; 88305; 96374; 96375; 99285; G0378; J0171; J2371; J2405; J2470; J2704; J7799; J9999; P9016; P9040

== ENCOUNTER → 2024-07-18 14:06 | Outpatient (BNVA) | payer MEDICARE, MEDICAID, SELFPAY | PROVIDERS: PCP Student in an Organized Health Care Education/Training Program; Visit Provider Student in an Organized Health Care Education/Training Program | DX: Z09 Encounter for follow-up examination after completed treatment for conditions other than malignant neoplasm (principal) | CPT/HCPCS: 99203; 99213 ==

== ENCOUNTER → 2025-02-10 07:55 | Outpatient (BNVA) | payer MEDICARE, MEDICAID, SELFPAY | PROVIDERS: PCP Student in an Organized Health Care Education/Training Program; Visit Provider Dermatology | DX: L21.8 Other seborrheic dermatitis (principal); L82.1 Other seborrheic keratosis; D18.01 Hemangioma of skin and subcutaneous tissue; D36.14 Benign neoplasm of peripheral nerves and autonomic nervous system of thorax; K42.9 Umbilical hernia without obstruction or gangrene; L57.0 Actinic keratosis | CPT/HCPCS: 17000; 99204 ==